=== PATIENT | female | born 1945 | race Caucasian/White ===

== ENCOUNTER 2016-11-26 08:09 | Day surgery (SDC) | payer MEDICARE, BC ==
[~2016-11-26 08:09] MED LIST: Lactated Ringers 1,000 ML IV SCH
[2016-11-26] MEDS ORDERED: Propofol 200 MG/20 ML SDV IV ONE (10:30)
--- NOTE | 2016-11-26 11:03 | PCM.OPNOTE ---
- General Post-Op/Procedure Note Date of Surgery/Procedure: 11/26/16 Operative Procedure(s): c scope with biopsy Findings: cecum, ascending, transverse, descending, sigmoid colon, rectum Pre Op Diagnosis: hx of colon polyp Post-Op Diagnosis: polyps: cecum, ascending, transverse, descending, sigmoid colon, rectum Anesthesia Technique: MAC Primary Surgeon: Ron Anand Anesthesia Provider: Poncho Person Pathology: cecum, ascending, transverse, descending, sigmoid colon, rectum Complications: None Condition: Good Free Text/Narrative:: see dictation
[2016-11-26 12:08] VITALS: BP 129/89
--- NOTE | 2016-11-26 18:28 | OR ---
DATE OF OPERATION: 11/26/2016 SURGEON: Ron Anand MD PROCEDURE PERFORMED: Colonoscopy with cold forceps biopsy. PREOPERATIVE DIAGNOSIS: Personal history of colon polyps. POSTOPERATIVE DIAGNOSIS: Colon polyp of the cecum, ascending colon, transverse colon, descending colon, sigmoid, and rectum. INDICATIONS FOR PROCEDURE: This is a 71-year-old white female, who presents for a followup colonoscopy. Last scope was 5 years ago. She had adenomatous polyps removed, presents now for a followup scope. DESCRIPTION OF PROCEDURE: After an excellent IV sedation was administered, digital rectal exam was performed. No marked abnormality was noted. Flexible colonoscope was inserted and advanced to the cecum without difficulty. The following findings were noted: Ascending colon in the cecum; a small polyp, biopsied and submitted in 1 container, just distal to that another polyp was encountered, biopsied and submitted into 1 container. Transverse colon; a small polyp, biopsied and submitted in 1 container. Descending colon; a small polyp, biopsied and submitted in 1 container. Sigmoid; small polyp, as well as some diverticulosis biopsied and submitted in 1 container. Rectum; a small polyp, biopsied and submitted in 1 container. Colon was deflated as the scope was removed. The patient tolerated the procedure well, was taken to recovery room in good condition. /[id number] /MODL
== END 2016-11-26 12:05 | disposition home or self-care (01) ==
LOC: FB.SDS 08:09
PROVIDERS: ATTEND Surgery
PROC: 0DBH8ZX Excision of Cecum, Via Natural or Artificial Opening Endoscopic, Diagnostic (ICD-10-PCS; principal; 2016-11-26)
PROC: 0DBP8ZX Excision of Rectum, Via Natural or Artificial Opening Endoscopic, Diagnostic (ICD-10-PCS; 2016-11-26)
PROC: 0DBN8ZX Excision of Sigmoid Colon, Via Natural or Artificial Opening Endoscopic, Diagnostic (ICD-10-PCS; 2016-11-26)
PROC: 0DBM8ZX Excision of Descending Colon, Via Natural or Artificial Opening Endoscopic, Diagnostic (ICD-10-PCS; 2016-11-26)
PROC: 0DBL8ZX Excision of Transverse Colon, Via Natural or Artificial Opening Endoscopic, Diagnostic (ICD-10-PCS; 2016-11-26)
PROC: 0DBK8ZX Excision of Ascending Colon, Via Natural or Artificial Opening Endoscopic, Diagnostic (ICD-10-PCS; 2016-11-26)
DX: Z12.11 Encounter for screening for malignant neoplasm of colon (principal); D12.2 Benign neoplasm of ascending colon; K63.5 Polyp of colon; K62.1 Rectal polyp; J45.909 Unspecified asthma, uncomplicated; N60.99 Unspecified benign mammary dysplasia of unspecified breast; Z79.1 Long term (current) use of non-steroidal anti-inflammatories (NSAID); Z79.899 Other long term (current) drug therapy; Z88.7 Allergy status to serum and vaccine; Z88.8 Allergy status to other drugs, medicaments and biological substances; Z90.12 Acquired absence of left breast and nipple
CPT/HCPCS: 00810; 45380; 88305; J2704; J7120

== ENCOUNTER 2017-12-07 07:49 | Day surgery (SDC) | payer MEDICARE, BC ==
[2017-12-07] MEDS ORDERED: Lactated Ringers 1,000 ML IV SCH (08:15)
[2017-12-07] MEDS ORDERED: Sodium Chloride 0.9% 10 ML Syringe FLUSH PRN (08:15)
[2017-12-07] MEDS ORDERED: Midazolam 1 MG/ML 2 ML SDV IV ONE (10:00)
[2017-12-07] MEDS ORDERED: fentaNYL 100 MCG/2 ML SDV IV ONE (10:00)
[2017-12-07] MEDS ORDERED: Propofol 200 MG/20 ML SDV IV ONE (10:00)
--- NOTE | 2017-12-07 10:36 | PCM.OPNOTE ---
- General Post-Op/Procedure Note Date of Surgery/Procedure: 12/07/17 Operative Procedure(s): c scope with bx Findings: normal exam Pre Op Diagnosis: diarrhea Post-Op Diagnosis: Same Anesthesia Technique: MAC Primary Surgeon: Ron Anand Anesthesia Provider: Germain Pickett Pathology: random colon bx Complications: None Condition: Good Free Text/Narrative:: see dictation
[2017-12-07 11:14] VITALS: BP 108/75
--- NOTE | 2017-12-07 13:42 | OR ---
DATE OF OPERATION: 12/07/2017 SURGEON: Ron Anand MD PROCEDURES PERFORMED: Colonoscopy with random biopsies. PREOPERATIVE DIAGNOSIS: Personal history of diarrhea. POSTOPERATIVE DIAGNOSIS: Normal scope. INDICATIONS FOR PROCEDURE: This is a 72-year-old white female who is referred with a history of diarrhea. She was offered and accepted colonoscopy. She also has a history of adenomatous polyps. She was offered and accepted same. DESCRIPTION OF PROCEDURE: After an excellent IV sedation was administered, digital rectal exam was performed. No marked abnormality was noted. Flexible colonoscope was inserted and advanced to the cecum without difficulty. The prep was excellent. The following findings were noted. Ascending colon, unremarkable. Random biopsies were taken. Transverse colon, unremarkable. Random biopsies were taken. Descending colon, unremarkable. Random biopsies were taken. Sigmoid and rectum, unremarkable. Random biopsies were taken. The colon was deflated as the scope was removed. The patient tolerated the procedure well and was taken to Recovery in a good condition. /[id number] ALMA DELIA/KRISTY
== END 2017-12-07 11:41 | disposition home or self-care (01) ==
LOC: FB.SDS 07:49
PROVIDERS: ATTEND Surgery
DX: R19.7 Diarrhea, unspecified (principal); J45.909 Unspecified asthma, uncomplicated; Z87.891 Personal history of nicotine dependence; Z86.010 Personal history of colon polyps; Z79.51 Long term (current) use of inhaled steroids; Z79.899 Other long term (current) drug therapy; Z88.8 Allergy status to other drugs, medicaments and biological substances; Z88.7 Allergy status to serum and vaccine
CPT/HCPCS: 00811-QZ; 88305; J2250; J2704; J3010; J7120

== ENCOUNTER 2018-04-18 09:10 | Emergency (ER) | payer MEDICARE, BC ==
[2018-04-18] MEDS ORDERED: Dextrose 5%-Lactated Ringers 1,000 ML IV SCH (09:30)
[2018-04-18] MEDS: Sodium Chloride 0.9% 10 ML Syringe FLUSH PRN ×2 (09:35→09:59)
--- NOTE | 2018-04-18 10:07 | EDM.PDOC ---
ED HPI GENERAL MEDICAL PROBLEM - General Chief Complaint: Syncope Stated Complaint: DEHYDRIATED Time Seen by Provider: 04/18/18 09:30 Source of Information: Reports: Patient, Family History Limitations: Reports: No Limitations - History of Present Illness INITIAL COMMENTS - FREE TEXT/NARRATIVE: Aggie comes to [facility] ED by EMS following a syncopal episode this am. She was diagnosed with CA Pancreas about 2 weeks ago, and finsihed first course of chemotherapy at that time. She developed escalating weakness, vomiting and diarrhea last week, and did go to the Clinic daily x 3 for IV hydration. She seemed better over the weekend, but relapsed last evening with weakness, nausea and vomiting. She lost consciousness this am for "a couple of seconds" while in the [place], and EMS was summoned. Upon arrival, BP 105/60, VR 129, alert and cooperative. She received 1L NS by EMS prior to arrival. She denies headache, chest pain, abdominal pain or SOB. She has a peripheral IV and a veniport in R upper chest. - Related Data Allergies Allergy/AdvReac Type Severity Reaction Status Date / Time loratadine [From Claritin] Allergy Swelling Verified 04/18/18 09:30 tetanus toxoid, adsorbed Allergy Swelling Verified 04/18/18 09:30 Home Meds: Home Meds Albuterol [Ventolin HFA] 2 puff IH Q4H PRN 11/25/16 [History] Budesonide/Formoterol Fumarate [Symbicort 80-4.5 Mcg Inhaler] 1 puff IH BID 05/04 [History] Calcium Citrate/Vitamin D3 [Calcium Citrate - Vit D Caplet] 1 ea PO BID [History] Cetirizine [ZyrTEC] 10 mg PO DAILY PRN 11/25/16 [History] Ibuprofen 200 mg PO ASDIRECTED PRN 11/25/16 [History] Raloxifene [Evista] 60 mg PO DAILY 11/25/16 [History] diphenhydrAMINE [Benadryl] 25 mg PO ASDIRECTED PRN 11/25/16 [History] Carboxymethylcellulose Sodium [Refresh Plus 0.5% Ophth Soln] 1 each OP Q2HR PRN 12/06/17 [History] Psyllium Husk (With Sugar) [Metamucil Powder] 575 gm PO DAILY 12/06/17 [History] Dexamethasone 4 mg PO DAILY PRN 04/18/18 [History] Loperamide HCl [Loperamide] 4 mg PO ASDIRECTED PRN MDD 8 04/18/18 [History] Ondansetron [Ondansetron ODT] 4 mg SL Q4H PRN 04/18/18 [History] Prochlorperazine [Compazine] 10 mg PO Q6H 04/18/18 [History] hydrOXYzine HCl [hydrOXYzine] 10 mg PO DAILY 04/18/18 [History] oxyCODONE 5 mg PO Q6H PRN 04/18/18 [History] Past Medical History HEENT History: Reports: Cataract, Impaired Vision, Other (See Below) Other HEENT History: EXC RIGHT UPPER LID LESION, PSEUDOPHAKIA, POSTERIOR VITREOUS DETACHMENT Cardiovascular History: Reports: None Respiratory History: Reports: Asthma Gastrointestinal History: Reports: Colon Polyp Genitourinary History: Reports: None HIDE OR SKIN BUFFER History: Reports: Musculoskeletal History: Reports: Arthritis, Other (See Below) Other Musculoskeletal History: PAGET'S DISEASE Neurological History: Reports: None Psychiatric History: Reports: None Endocrine/Metabolic History: Reports: None Hematologic History: Reports: None Immunologic History: Reports: None Oncologic (Cancer) History: Reports: Breast, Pancreatic 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 Dermatologic History: Reports: None - Infectious Disease History Infectious Disease History: Reports: Chicken Pox, Measles, Mumps - Past Surgical History Head Surgeries/Procedures: Reports: None HEENT Surgical History: Reports: Cataract Surgery Cardiovascular Surgical History: Reports: None Respiratory Surgical History: Reports: None GI Surgical History: Reports: Colonoscopy, EGD Female Surgical History: Reports: Other (See Below) Other Female Surgeries/Procedures: LEFT BREAST LUMPECTOMY Endocrine Surgical History: Reports: None Neurological Surgical History: Reports: None Musculoskeletal Surgical History: Reports: None Dermatological Surgical History: Reports: None Social & Family History - Family History HEENT: OBGYN: Reports: Other (See Below) Other OBGYN Family History: FAMILY HX OVARIAN CA - Caffeine Use Caffeine Use: Reports: Coffee, Tea ED ROS GENERAL - Review of Systems Review Of Systems: See Below Constitutional: Reports: Malaise, Weakness, Fatigue, Decreased Appetite, Weight Loss HEENT: Reports: No Symptoms Respiratory: Reports: No Symptoms Cardiovascular: Reports: Blood Pressure Problem, Lightheadedness GI/Abdominal: Reports: Diarrhea, Decreased Appetite, Nausea, Vomiting : Reports: No Symptoms Musculoskeletal: Reports: No Symptoms Skin: Reports: No Symptoms Neurological: Reports: Dizziness, Syncope Psychiatric: Reports: No Symptoms Hematologic/Lymphatic: Reports: No Symptoms Immunologic: Reports: No Symptoms - Physical Exam Exam: See Below Exam Limited By: No Limitations General Appearance: Alert, WD/WN, No Apparent Distress, Thin Eye Exam: Bilateral Eye: EOMI, Normal Inspection, PERRL Ears: Normal External Exam Nose: Normal Inspection Throat/Mouth: Normal Inspection, Normal Gums, Normal Oropharynx, Normal Voice, No Airway Compromise Head Exam: Atraumatic, Normocephalic Neck: Normal Inspection, Supple, Non-Tender Respiratory/Chest: No Respiratory Distress, Lungs Clear, Normal Breath Sounds, No Accessory Muscle Use, Chest Non-Tender Cardiovascular: Normal Peripheral Pulses, No Edema, No Gallop, No JVD, No Murmur , No Rub, Tachycardia GI/Abdominal: Normal Bowel Sounds, Soft, Non-Tender, No Organomegaly, No Distention, No Mass (Female) Exam: Deferred Rectal (Female) Exam: Deferred Neuro Exam (Abbreviated): Alert, Oriented, CN II-XII Intact, No Motor/Sensory Deficits Back Exam: Normal Inspection Extremities: Normal Inspection Psychiatric: Normal Mood, Flat Affect Skin Exam: Warm, Dry, Intact, No Rash Course - Vital Signs Text/Narrative:: Following assessment at the [facility] ED, IV fluids with D5LR was continued pending results of screening labs: CBC noted Hgb 11.3 gm, WBC 1,200 with 84% PMNs, plts 117,000; Na 138, K 1.6, BUN 17, Cr 1.3, Ca 6.6; the IV was changed to NS and KCl 40 meq piggybacked at 20 meq/hr thru central line: repeat K 1.7 meq/l 2 hours later; BPs 74/47 were detected and a 500 ml NS bolus was administered, followed by a KCL 40 meq infusion thru central line over 2 hours was repeated. Case was discussed with hospitalist who suggested transfer to [facility], and case was discussed with Dr Alvarado who accepted patient. In view of persistent hypotension, BC pending, I empirically administered Zosyn 3.375 mg IV for neutropenic fever w hypotension. Last Recorded V/S: Last Vital Signs Temp 38.6 C H 04/18/18 14:00 Pulse 108 H 04/18/18 12:00 Resp 20 04/18/18 14:45 BP 69/37 L 04/18/18 14:45 Pulse Ox 97 04/18/18 14:45 - Orders/Labs/Meds Orders: Active Orders 24 hr Category Date Time Status Central Line Assessment [RC] ASDIRECTED Care 04/18/18 09:40 Active CBC WITH AUTO DIFF [HEME] Stat Lab 04/18/18 15:00 Results COMPREHENSIVE METABOLIC PN,CMP [CHEM] Stat Lab 04/18/18 15:00 Received CULTURE BLOOD [BC] Stat Lab 04/18/18 14:45 Received Piperacillin/Tazobactam [Zosyn] 3.375 gm Med 04/18/18 15:30 Ordered Sodium Chloride 0.9% [Normal Saline] 50 ml IV Q6H Potassium Chloride [KCL 20 MEQ in Water 100 ML] 20 meq Med 04/18/18 14:00 Active Premix Bag 1 bag IV ONETIME Sodium Chloride 0.9% [Normal Saline] 1,000 ml Med 04/18/18 10:45 Active IV ASDIRECTED Sodium Chloride 0.9% [Normal Saline] 1,000 ml Med 04/18/18 13:20 Active IV ASDIRECTED Sodium Chloride 0.9% [Saline Flush] Med 04/18/18 09:40 Active 10 ml FLUSH ASDIRECTED PRN Medication Orders Sodium Chloride (Normal Saline) 1,000 mls @ 500 mls/hr IV ASDIRECTED MAHESH Last Admin: 04/18/18 10:50 Dose: 500 mls/hr Potassium Chloride 20 meq/ (Premix) 100 mls @ 100 mls/hr IV ONETIME MAHESH Stop: 04/19/18 14:59 Last Admin: 04/18/18 14:05 Dose: 100 mls/hr Sodium Chloride (Normal Saline) 1,000 mls @ 500 mls/hr IV ASDIRECTED MAHESH Last Admin: 04/18/18 15:09 Dose: 400 mls/hr Infusion: 04/18/18 15:02 Dose: 400 mls/hr Infusion: 04/18/18 14:05 Dose: 400 mls/hr Infusion: 04/18/18 13:35 Dose: 999 mls/hr Admin: 04/18/18 13:20 Dose: 500 mls/hr Piperacillin Sod/Tazobactam (Sod 3.375 gm/ Sodium Chloride) 50 mls @ 100 mls/ hr IV Q6H MAHESH Sodium Chloride (Saline Flush) 10 ml FLUSH ASDIRECTED PRN PRN Reason: Keep Vein Open Last Admin: 04/18/18 09:59 Dose: 10 ml Admin: 04/18/18 09:35 Dose: 10 ml Labs: Laboratory Tests 04/18/18 04/18/18 04/18/18 Range/Units 09:55 09:55 13:10 WBC 1.2 L* (4.5-12.0) X10-3/uL RBC 3.61 (3.23-5.20) x10(6)uL Hgb 11.3 L (11.5-15.5) g/dL Hct 33.1 (30.0-51.3) % MCV 91.8 (80-96) fL MCH 31.5 (27.7-33.6) pg MCHC 34.3 (32.2-35.4) g/dL RDW 13.0 (11.5-15.5) % Plt Count 117 L (125-369) X10(3)uL MPV 6.9 L (7.4-10.4) fL Add Manual Diff Yes Neutrophils % (Manual) 84 H (46-82) % Lymphocytes % (Manual) 16 (13-37) % Sodium 138 (135-145) mmol/L Potassium 1.6 L* 1.7 L* (3.5-5.3) mmol/L Chloride 105 (100-110) mmol/L Carbon Dioxide 20 L (21-32) mmol/L BUN 17 (7-18) mg/dL Creatinine 1.3 H (0.55-1.02) mg/dL Est Cr Clr Drug Dosing TNP Estimated GFR (MDRD) 40 L (>60) BUN/Creatinine Ratio 13.1 (9-20) Glucose 196 H (80-116) mg/dL Calcium 6.6 L (8.6-10.2) mg/dL Magnesium (1.8-2.5) mg/dL 04/18/18 04/18/18 Range/Units 13:10 15:00 WBC 2.1 L (4.5-12.0) X10-3/uL RBC 3.10 L (3.23-5.20) x10(6)uL Hgb 9.8 L (11.5-15.5) g/dL Hct 28.3 L (30.0-51.3) % MCV 91.1 (80-96) fL MCH 31.7 (27.7-33.6) pg MCHC 34.8 (32.2-35.4) g/dL RDW 12.8 (11.5-15.5) % Plt Count 85 L (125-369) X10(3)uL MPV 7.2 L (7.4-10.4) fL Add Manual Diff Yes Neutrophils % (Manual) (46-82) % Lymphocytes % (Manual) (13-37) % Sodium (135-145) mmol/L Potassium (3.5-5.3) mmol/L Chloride (100-110) mmol/L Carbon Dioxide (21-32) mmol/L BUN (7-18) mg/dL Creatinine (0.55-1.02) mg/dL Est Cr Clr Drug Dosing Estimated GFR (MDRD) (>60) BUN/Creatinine Ratio (9-20) Glucose (80-116) mg/dL Calcium (8.6-10.2) mg/dL Magnesium 1.3 L (1.8-2.5) mg/dL Meds: Medications Generic Name Dose Route Start Last Admin Trade Name Freq PRN Reason Stop Dose Admin Sodium Chloride 1,000 mls @ 500 mls/hr 04/18/18 10:45 04/18/18 10:50 Normal Saline IV 500 mls/hr ASDIRECTED MAHESH Administration Potassium Chloride 20 meq/ 100 mls @ 100 mls/hr 04/18/18 14:00 04/18/18 14:05 Premix IV 04/19/18 14:59 100 mls/hr ONETIME MAHESH Administration Sodium Chloride 1,000 mls @ 500 mls/hr 04/18/18 13:20 04/18/18 15:09 Normal Saline IV 400 mls/hr ASDIRECTED MAHESH Administration Piperacillin Sod/Tazobactam 50 mls @ 100 mls/hr 04/18/18 15:30 Sod 3.375 gm/ Sodium Chloride IV Q6H MAHESH Sodium Chloride 10 ml 10/01/18 09:40 04/18/18 09:59 Saline Flush FLUSH 10 ml ASDIRECTED PRN Administration Keep Vein Open Discontinued Medications Generic Name Dose Route Start Last Admin Trade Name Kajal PRN Reason Stop Dose Admin Dextrose/Lactated Ringer's 1,000 mls @ 500 mls/hr 04/18/18 09:30 04/18/18 09: 39 Dextrose 5%-Lactated Ringers IV 500 mls/hr ASDIRECTED MAHESH Administration Potassium Chloride 100 mls @ 50 mls/hr 04/18/18 11:00 Kcl 20 Meq In Water 100 Ml IV 04/18/18 14:59 Q2H MAHESH Potassium Chloride 100 mls @ 100 mls/hr 04/18/18 11:00 04/18/18 12:03 Kcl 20 Meq In Water 100 Ml IV 04/18/18 12:59 100 mls/hr Q1H MAHESH Administration Potassium Chloride 40 meq 04/18/18 10:23 04/18/18 10:34 Klor-Con M20 PO 04/18/18 10:24 Not Given ONETIME ONE Departure - Departure Time of Disposition: 14:51 Disposition: DC/Tfer to Other 70 Condition: Poor Clinical Impression: Chemotherapy induced neutropenia Cancer of pancreas Qualifiers: Pancreatic malignancy location: unspecified Qualified Code(s): C25.9 - Malignant neoplasm of pancreas, unspecified - Discharge Information *PRESCRIPTION DRUG MONITORING PROGRAM REVIEWED*: Not Applicable *COPY OF PRESCRIPTION DRUG MONITORING REPORT IN PATIENT JANELLE: Not Applicable Referrals: Shameka Wiggins PA [Primary Care Provider] - Forms: ED Department Discharge - Problem List & Annotations (1) Cancer of pancreas SNOMED Code(s): 855542613 Code(s): C25.9 - MALIGNANT NEOPLASM OF PANCREAS, UNSPECIFIED Status: Acute Current Visit: Yes Annotation/Comment:: Transfer to [facility] for further managment. Qualifiers: Pancreatic malignancy location: unspecified Qualified Code(s): C25.9 - Malignant neoplasm of pancreas, unspecified (2) Chemotherapy induced neutropenia SNOMED Code(s): 212580833 Code(s): D70.1 - AGRANULOCYTOSIS SECONDARY TO CANCER CHEMOTHERAPY; T45.1X5A - ADVERSE EFFECT OF ANTINEOPLASTIC AND IMMUNOSUP DRUGS, INIT Status: Acute Current Visit: Yes Annotation/Comment:: Transfer to [facility] for further managment. - Problem List Review Problem List Initiated/Reviewed/Updated: Yes - My Orders Last 24 Hours: My Active Orders 04/18/18 09:40 Central Line Assessment [RC] ASDIRECTED Sodium Chloride 0.9% [Saline Flush] 10 ml FLUSH ASDIRECTED PRN 04/18/18 10:45 Sodium Chloride 0.9% [Normal Saline] 1,000 ml IV ASDIRECTED 04/18/18 13:20 Sodium Chloride 0.9% [Normal Saline] 1,000 ml IV ASDIRECTED 04/18/18 14:00 Potassium Chloride [KCL 20 MEQ in Water 100 ML] 20 meq Premix Bag 1 bag IV ONETIME 04/18/18 14:45 CULTURE BLOOD [BC] Stat 04/18/18 15:00 CBC WITH AUTO DIFF [HEME] Stat COMPREHENSIVE METABOLIC PN,CMP [CHEM] Stat 04/18/18 15:30 Piperacillin/Tazobactam [Zosyn] 3.375 gm Sodium Chloride 0.9% [Normal Saline] 50 ml IV Q6H - Assessment/Plan Last 24 Hours: My Active Orders 04/18/18 09:40 Central Line Assessment [RC] ASDIRECTED Sodium Chloride 0.9% [Saline Flush] 10 ml FLUSH ASDIRECTED PRN 04/18/18 10:45 Sodium Chloride 0.9% [Normal Saline] 1,000 ml IV ASDIRECTED 04/18/18 13:20 Sodium Chloride 0.9% [Normal Saline] 1,000 ml IV ASDIRECTED 04/18/18 14:00 Potassium Chloride [KCL 20 MEQ in Water 100 ML] 20 meq Premix Bag 1 bag IV ONETIME 04/18/18 14:45 CULTURE BLOOD [BC] Stat 04/18/18 15:00 CBC WITH AUTO DIFF [HEME] Stat COMPREHENSIVE METABOLIC PN,CMP [CHEM] Stat 04/18/18 15:30 Piperacillin/Tazobactam [Zosyn] 3.375 gm Sodium Chloride 0.9% [Normal Saline] 50 ml IV Q6H Plan: Follow up with medical oncology at [facility].
[2018-04-18] MEDS: Potassium Chloride 20 MEQ Tab.ER PO ONE ×2 (10:31→10:34)
[2018-04-18] MEDS ORDERED: Sodium Chloride 0.9% 1,000 ML IV SCH (10:45)
[2018-04-18] MEDS ORDERED: Potassium Chloride 40 MEQ/20 ML SDV IV SCH (11:00)
[2018-04-18] MEDS ORDERED: Potassium Chloride 100 ML IV SCH (11:00)
[2018-04-18] MEDS: Potassium Chloride 100 ML IV SCH ×2 (11:03→12:03)
[2018-04-18] MEDS: Sodium Chloride 0.9% 1,000 ML IV SCH ×2 (13:20→15:09)
[2018-04-18] MEDS: Potassium Chloride 20 MEQ in Premix Bag 1 BAG IV SCH ×2 (13:32→14:05)
[2018-04-18] MEDS ORDERED: Piperacillin/Tazobactam 3.375 GM in Sodium Chloride 0.9% 50 ML IV SCH (15:30)
[2018-04-18 15:50] VITALS: BP 64/37
== END 2018-04-18 15:35 | disposition other institution (70) ==
LOC: FB.ED 09:10
DX: D70.1 Agranulocytosis secondary to cancer chemotherapy (principal); T45.1X5A Adverse effect of antineoplastic and immunosuppressive drugs, initial encounter; C25.9 Malignant neoplasm of pancreas, unspecified; Z88.7 Allergy status to serum and vaccine; Z88.8 Allergy status to other drugs, medicaments and biological substances
CPT/HCPCS: 36415; 80048; 80053; 83735; 84132; 85025; 87040; 87077; 96361; 96365; 96366; 96375; 99285; J2543; J3480; J7030; J7042; J7050; 87186; A9270-GY